=== PATIENT | female | born 1935 | race Caucasian/White ===

== ENCOUNTER 2018-03-17 10:18 | Inpatient (IN) | payer OTHER, SELFPAY ==
[2018-03-08 09:59] VITALS: BMI 24.7
[2018-03-17] VITALS (18 sets, daily range): BP systolic 99–136; BP diastolic 42–85; PULSE 54–64; RESP 13–100; TEMP 35.8–36.5; O2SAT 96–100
--- NOTE | 2018-03-17 | DI.RAD.S_ITS ---
PROCEDURE: XR PELVIS 1-2V INDICATIONS: POST OPERATIVE TOTAL LEFT HIP TECHNIQUE: 1 view of the lower pelvis acquired. COMPARISON: [facility] [place], [place], XR PELVIS WITH LATERAL HIP LEFT, 01/19/2018, 9:38. FINDINGS: Bones: Patient is status post left hip arthroplasty, with hardware components in expected positions. The hip joint appears congruent. The visualized bony structures appear intact. Note is made of prior right hip arthroplasty with prosthesis in expected position. Soft tissues: Overlying postoperative changes are noted. No suspicious soft tissue densities. IMPRESSION: Left hip prosthesis in anatomic alignment. Dictated by: Aruna Wilson M.D. on 03/17/2018 at 15:58 Approved by: Aruna Wilson M.D. on 03/17/2018 at 15:59
[2018-03-17] MEDS: LACTATED RINGERS 1,000 ML 42 ML IV (11:00)
--- NOTE | 2018-03-17 11:45 | PM.PREOP ---
Pre-operative Note Interval Note Pre-op Check: History & Physical Reviewed by Physician and Changes
[2018-03-17] MEDS: CEFAZOLIN 1 GM VIAL IV (12:22)
--- NOTE | 2018-03-17 13:16 | SUR.OPER ---
Lateral on padded OR bed. Gel axillary roll. Arms secured on padded armboard with pillow supporting top arm. Padded hip positioner braces x4 - anterior and posterior chest and pelvis. Additional gel pad used anterior pelvis. Gel pad under bottom leg from knee to foot and secured with tape over sheet.
[2018-03-17] MEDS: BUPIVACAINE 0.25% W/ EPI 50 ML VIAL 30 ML INJ (13:23)
[2018-03-17] MEDS: BUPIVACAINE LIPOSOME 266 MG/20 ML VIAL INJ (13:24)
--- NOTE | 2018-03-17 14:47 | PM.OP.1 ---
Operative Date/Time/Diagnoses - Date of procedure: 03/17/18 Time of procedure: 14:48 Pre-op diagnosis: Left hip osteoarthritis Post-op diagnosis: same Procedure & Clinicians Procedure: Left total hip arthroplasty (CPT code 87187 with patient observation assistant) Same procedure as scheduled: Yes Indications: Patient is an 83-year-old female with severe left hip DJD. The patient has pain with activities and at rest, limited ambulation and activity tolerance, difficulties with ADLs, and failure of conservative treatment. We have discussed the nature of condition, treatment options, risks and benefits, and patient elects to proceed with total hip arthroplasty and gives informed consent. Surgeon: Karl Harden Copier Technician: Sheba Duke Anesthesia Type: General and Spinal Operative Notes Closure Type: primary Implants & Drains: Acetabulum: Cazares and Nephew R3 acetabular component size 52 mm Femoral component: Cazares and Nephew Synergy stem size 15 with high offset Femoral head: 36 mm + 0 cobalt chrome Estimated Blood Loss (mL): 100 Procedure in detail: After satisfaction induction of anesthetic, and administration of IV antibiotics, the patient was positioned in the lateral decubitus position with all bony prominences well padded and pelvic position secured using a hip worm farmer positioning device. Left hip and lower extremity prepped and draped in the usual sterile fashion, 1st dose of intravenous tranexamic acid was administered, then a longitudinal incision was created centered over the greater trochanter and carried sharply through the skin and subcutaneous tissues down to the fascia demond which was divided longitudinally and retracted with a Charnley retractor. External rotators visualize, cut, tagged, and retracted posteriorly, then the capsule was cut in a T-type fashion with the corners tagged and retracted. Hip was dislocated and femoral neck cut made according to preoperative templating. Acetabular retractors then placed, and the acetabular labrum and osteophytes were excised. The acetabulum was then sequentially reamed to 51 mm with an excellent circumferential ream and fit with the trial. The trial component was removed and a permanent size 52 mm Cazares and Nephew R3 acetabular component was selected, positioned, and impacted with satisfactory position and fixation achieved. Permanent liner was then inserted with the elevated lip directed posteriorly. Soft tissue then removed off the lateral femoral neck in the lateral neck was entered using a box osteotome. T-handled reamers placed down the canal followed by sequential broaching to 15 with the final broach left in place for trial reduction which demonstrated excellent leg length, range of motion, and stability characteristics with a high offset neck and 36 mm +0 trial ball. The trial and broach were removed, and a permanent size 15 high offset Cazares and Nephew Synergy stem was selected and inserted with excellent position and fixation achieved. Another trial reduction yielded the above characteristics so the trial ball was exchanged for a permanent 36 mm +0 cobalt chrome ball. The hip was irrigated and reduced and excellent leg length range of motion and stability characteristics were achieved and maintained. Periarticular tissues were infiltrated with Exparel. The hip was copiously irrigated, and the capsule repaired with #2 Ethibond, and the piriformis was repaired back to the greater trochanter with the same. Fascia demond closed with interrupted #1 Ethibond sutures, and the subcutaneous tissues were closed in 2 layers of 0 Vicryl and 2 0 Vicryl. Skin was closed with shaw and sterile dressings applied. Second dose of tranexamic acid was administered intravenously, and the anesthetic was terminated. Complications: none Condition: stable Disposition: PACU Plan for aftercare: Patient will be admitted to the acute care llanes, and anticipate discharge on postop day 3 with follow-up in office in 10-14 days. Outpatient physical therapy will be arranged and patient will continue to observe posterior hip precautions. Patient will continue use of postoperative Lovenox for 10 days postop.
[2018-03-17] MEDS: LACTATED RINGERS 1,000 ML 100 ML IV (16:38)
[2018-03-17] MEDS: ONDANSETRON 4 MG/2 ML INJ IV ×2 (16:38→20:05)
[2018-03-17] MEDS: METOCLOPRAMIDE 10 MG/2 ML INJ IV ×2 (18:05→22:02)
--- NOTE | 2018-03-17 18:24 | PC.ADMIT ---
Addendum entered by Delores Ballard R.N. 03/17/18 21:02: pt had 3 episodes of emesis despite PRN antiemetics administered and not taking any PO intake. pt denies having any previous nausea issues but pt's report pt had severe nausea with previous surgeries and notified the anesthesiologist prior to surgery today. Notified Dr. Cazares. SHIRLEY ng MD to contact anesthesiologist regarding nausea relief options. pt and spouse notified. Awaiting new orders. Original Note: [id number] Admission Note: The patient,Nereida Villar,83 y/o, was given written information regarding hospital policies, unit procedures and contact persons. Patient's smoking status: Never smoker. Vital Signs - 8 hr 03/17/18 11:06 03/17/18 14:16 03/17/18 14:21 Temperature 97.1 F L 97.4 F L Pulse Rate 64 62 64 Respiratory Rate 16 13 13 Blood Pressure 136/61 H 103/46 L 99/44 L Pulse Oximetry 99 97 97 03/17/18 14:26 03/17/18 14:31 03/17/18 14:37 Temperature Pulse Rate 63 61 60 Respiratory Rate 14 13 13 Blood Pressure 102/42 L 99/43 L 104/42 L Pulse Oximetry 98 99 99 03/17/18 14:47 03/17/18 14:57 03/17/18 15:07 Temperature Pulse Rate 56 L 58 L 57 L Respiratory Rate 13 14 57 H Blood Pressure 104/44 L 105/46 L 103/48 L Pulse Oximetry 99 98 99 03/17/18 15:20 03/17/18 15:30 03/17/18 15:45 Temperature 97.7 F 97.4 F L Pulse Rate 56 L 60 57 L Respiratory Rate 13 14 100 H Blood Pressure 118/52 L 118/66 120/70 Pulse Oximetry 98 99 100 03/17/18 16:05 03/17/18 16:15 03/17/18 16:45 Temperature 96.5 F L 96.5 F L Pulse Rate 60 54 L Respiratory Rate 17 18 18 Blood Pressure 127/85 H 126/52 H Pulse Oximetry 98 97 96 03/17/18 18:03 Temperature 96.6 F L Pulse Rate 62 Respiratory Rate 18 Blood Pressure 136/66 H Pulse Oximetry 100 Received pt at approximately 1545 via bed, accompanied by WEAVER APPRENTICE. Ox3, pleasant and cooperative. L hip bulky dressing CDI, ice pack applied. pt states numbness to bilateral feet/toes, and some sensation to calf area. pt has 2-3+ muscle strength to knees, minimal movement to ankles/toe area. Received pt without brito intact, able to void via bedpan. pt c/o nausea, refused PO intake/meals at that time. medicated with PRN zofran and able to rest comfortably. pt awoke with a headache and vomited the small amount of water she had just drank. pt medicated with PRN reglan. pt denies any pain, only stiffness to L hip area. educated and encouraged hip precautions. pt currently resting.
[2018-03-17] MEDS: CEFAZOLIN 2 GM/100 ML FROZ.PIGGY IV (22:03)
[2018-03-18 00:35] VITALS: BP 122/55; PULSE 61; RESP 11; TEMP 36.3; O2SAT 99
[2018-03-18] MEDS: LACTATED RINGERS 1,000 ML 125 ML IV (02:00)
[2018-03-18] MEDS: hydrOXYzine pamoate 25 MG CAPSULE PO (04:12)
[2018-03-18 04:26] VITALS: BP 118/56; PULSE 66; RESP 13; TEMP 36.1; O2SAT 98
[2018-03-18] MEDS: CEFAZOLIN 2 GM/100 ML FROZ.PIGGY IV (05:51)
[2018-03-18 05:52] LABS: Hemoglobin 10.5 g/dL (12.0-16.0)
[2018-03-18 08:19] VITALS: BP 126/64; PULSE 68
[2018-03-18] MEDS: FELODIPINE ER 2.5 MG TAB PO ×2 (08:19→21:36)
[2018-03-18] MEDS: LISINOPRIL 20 MG TABLET 40 MG PO (08:19)
[2018-03-18] MEDS: DOCUSATE 100 MG CAPSULE PO ×2 (08:19→21:36)
[2018-03-18] MEDS: ATENOLOL 50 MG TABLET PO (08:19)
[2018-03-18] MEDS: ACETAMINOPHEN SUSP 650 MG/20.3 ML UDC 1000 MG PO ×4 (08:20→21:35)
[2018-03-18] MEDS: TOLTERODINE 1 MG TABLET PO ×2 (08:20→21:36)
[2018-03-18] MEDS: ENOXAPARIN 40 MG/0.4 ML SYRINGE SUBCUT (08:20)
[2018-03-18] MEDS: MULTIVITAMIN 1 TABLET 1 TAB PO (08:20)
--- NOTE | 2018-03-18 09:50 | PT.IIE ---
Physical Therapy Inpatient Evaluation/Re-Eval M1 PT/OT-IP Prior Functional Status Start: 03/18/18 08:10 Freq: NEEDED Status: Active Protocol: Document 03/18/18 09:38 RS (Rec: 03/18/18 09:50 RS [id number]) Medical Review Prior Functional Status Medical History Reviewed Yes Communication no known deficits. Mobility and Gait mod ind w/ SPC at all times, denies any falls. Prior Functional Level (Other details) drives, likes to stay active. Social History Household Members spouse Living Arrangements House Number of Floors (Floors) One Floor Number of Stairs To Enter/Railing? 2STE w/ R rail ascending Home Equipment Front Wheel Walker Straight Cane Employment Status Retired Additional Social History Comment will be serving as caregiver, he has no physical limitations M2 PT-IP Current Condition Start: 03/18/18 08:10 Freq: NEEDED Status: Active Protocol: Document 03/18/18 09:38 RS (Rec: 03/18/18 09:50 RS [id number]) Physical Therapy Current Condition Current Condition Evaluation Date 03/18/18 Treatment Diagnosis impaired mobility s/p L post MELVI Onset Date 03/17/18 Weight Bearing Status Weight Bearing Status Weight Bear as Tolerated M3 PT-IP Subjective Start: 03/18/18 08:10 Freq: NEEDED Status: Active Protocol: Document 03/18/18 09:38 RS (Rec: 03/18/18 09:50 RS [id number]) Subjective Physical Therapy Visit Type Type Initial Evaluation Visit Start Time 08:52 Visit Stop Time 09:32 Total Visit Minutes 40 Physical Therapy Visit Comments Patient/Caregiver Goals Go home tomorrow. Therapy Pain Assessment Pain When Pain Assessed At Rest Pain Present Pain Present Pain Reported Location Left Hip Intensity 4 Description Aching Tender Throbbing With Movement Pain Behaviors Facial Grimacing Pain Management Techniques Apply Cold Re-positioning Timing of Activity with Medications M4 PT-IP Mobility and Gait Start: 03/18/18 08:10 Freq: NEEDED Status: Active Protocol: Document 03/18/18 09:38 RS (Rec: 03/18/18 09:50 RS [id number]) PT-Bed Mobility Assessment Supine to Sit Supine to Sit Minimal Assistance 1 Person Assistance Head of Bed Elevated Scooting Scooting to Edge of Bed Contact Guard Assistance PT-Transfer Assessment Sit to and From Stand Sit to and from Stand Contact Guard Assistance 1 Person Assistance Use of Upper Extremities Equipment Transfer Assistive Device Gait Belt Front Wheeled Walker Transfers Transfer Destination Chair Toilet Transfer Technique Stand Step Pivot Transfer Ability Level of Assist Contact Guard Assistance 1 Person Assistance Use of Upper Extremities Comments Mobility Comments cues required for placement of feet, pt needed no reminder to avoid leaning forward Gait Assessment Gait Gait Assistance Required: Standby Assistance 1 Person Assist Distance (Feet) (feet) 30 Able to Maintain Weight Bearing Status Yes During Gait Assistive Devices Assistive Device Gait Belt Front Wheeled Walker Gait Deviations General Gait Pattern Antalgic Comments Gait Comments Other than slight limp and slow velocity, pts gait looks relatively symmetrical and normal. All mobility was performed with shoes donned. PT-Balance Assessment Sitting Balance and Reactions Static Sitting Balance Ability Normal Dynamic Sitting Balance Ability Normal Standing Balance and Reactions Static Standing Balance Ability Normal Dynamic Standing Balance Ability Good Device Used FWW M5 PT-IP Objective Assessments Start: 03/18/18 08:10 Freq: NEEDED Status: Active Protocol: Document 03/18/18 09:38 RS (Rec: 03/18/18 09:50 [id number]) Orientation Orientation/Cognition Level of Alertness Alert Orientation Name Age Birthday Month Date Year Day of Week Place Situation Language Function Ability No Deficits Noted Safety Awareness Understands Safety Issues Memory Description No Deficits Noted Gross Range of Motion Upper Extremity ROM Assessment Within Functional Limits Lower Extremity ROM Assessment Right Impaired Impairments R knee flexion limited otherwise BLE WFL within L hip precautions Strength Upper Extremity Strength Assessment Within Functional Limits Comments Strength Comments not formally assessed M6 PT-IP Treatment Start: 03/18/18 08:10 Freq: NEEDED Status: Active Protocol: Document 03/18/18 09:38 RS (Rec: 03/18/18 09:50 [id number]) Physical Therapy Treatment Exercises Exercises Ankle Pumps Gluteal Sets Quad Sets Education Post-Op Education Precautions Weight Bearing Status Post-Op Packet Safety M7 PT-IP Assessment and Plan Start: 03/18/18 08:10 Freq: NEEDED Status: Active Protocol: Document 03/18/18 09:38 RS (Rec: 03/18/18 09:50 [id number]) PT Summary Assessment and Plan Potential Rehabilitation Potential Excellent Summary Impairments Pain Strength Bed Mobility Transfers Gait Activity Tolerance Progress Towards Goals Progressing Toward Goals Assessment Summary Pt presents with pain and decreased strength that are causing functional impairments with all mobility as expected s/p L MELVI. However, pt is mobilizing well, requiring the most assist with bed mobility . Anticipate that with 1-2 more sessions including family training, pt will be ready to safely discharge home with via car and continue with OPPT when ready. Pt in agreement with this plan. Goals Bed Mobility Goal Independent Transfer Goal Standby Assistance Front Wheeled Walker Gait Goal Standby Assistance Front Wheel Walker Gait Distance 150 Other Goals Up/down 2 steps w/ 1 rail and CGA. Days to Meet Goals 2 Frequency of Treatment Frequency Of Treatment Twice a Day Treatment Plan Physical Therapy Treatment Plan Bed Mobility Training Transfer Training Gait Training Therapeutic Exercise Discharge Planning Other Recommendations and Next Treatment finish going over MELVI Focus exercises, progress walking distance, trial stairs if ready. Needs to practice bed mobility with bed flat. Recommendations To Nursing Amount of Assist Needed 1 Person Assist Discharge Recommendations PT Discharge Recommendations Home with Assistance Visit Care Team Role Provider Type Prosper Francois MD Primary Care Provider Non-Staff Referring Provider Karl Harden MD Admit Provider Physician Attending Provider Current Diagnoses Unilateral primary osteoarthritis, left hip (03/17/18) Trochanteric bursitis, right hip (03/17/18) Medical History (Last Updated 03/08/18 @ 10:19 by Maribel Gibson RN) Chronic pain (Acute) HTN (hypertension) (Acute) History of hysterectomy (Acute) Hyperlipemia (Acute) Lower urinary tract symptoms (LUTS) (Acute) Neuropathy (Acute) Surgery Performed Operation Date: 03/17/18 11:45 Actual Procedures p Total Hip Arthroplasty(Left) - Karl Harden MD Surgical History (Last Updated 03/08/18 @ 10:19 by Maribel Gibson RN) History of total right hip arthroplasty (Acute) Hx of appendectomy (Acute) Hx of tonsillectomy (Acute) Hx of total knee arthroplasty (Acute) Status post cataract extraction of both eyes with insertion of intraocular lens (Acute)
[2018-03-18 09:57] VITALS: BP 126/64; PULSE 68; RESP 16; TEMP 36.4; O2SAT 99
--- NOTE | 2018-03-18 10:12 | P.PN_ITS ---
Subjective Interval history: Patient was seen bedside status post left posterior MELVI with Dr. Harden. Patient is postop day 1. She is doing well, pain is relatively controlled, however her appetite is poor at this time. She has gotten up physical therapy and did well. She does not feel comfortable going home today. Date Patient Seen: 03/18/18 Time Patient Seen: 09:44 Exam Vital Signs (past 8 hours): Vital Signs - 8 hr 3 03/18/18 04:26 03/18/18 08:19 03/18/18 09:57 Temperature 96.9 F L 97.5 F L Pulse Rate 66 68 68 Respiratory Rate 13 16 Blood Pressure 118/56 L 126/64 H 126/64 H Pulse Oximetry 98 99 Pulse Oximetry 99 Oxygen Delivery Method Room Air Oxygen Flow Rate 0 Narrative Exam Narrative: Impression patient is well-developed well-nourished in no acute distress. Patient alert oriented x3. Examination of the left lower extremity shows that is neurovascularly intact with full range of motion of the ankle and the ability to fire her quadriceps muscle. Incision is clean dry and intact covered by a dressing. Calves are soft and compressible. No true edema in the lower extremities. Objective Labs Result Diagrams: 03/18/18 05:46 Labs: Laboratory Results - last 24 hr 03/18/18 05:46 Hgb 10.5 L Hct 30.0 L Assessment & Plan Post-op Postoperative Procedures Operation Date: 03/17/18 11:45 Actual Procedures Side Surgeon p Total Hip Arthroplasty Left Karl Harden MD Patient is status post left MELVI postop day 1. Doing well continue with PT, VTE prophylaxis, and pain control. Discharge home tomorrow. Postoperative day: 1 Postoperative status: doing well Postoperative plan: routine post-op care, ambulate and advance diet Time Spent With Patient less than 15 minutes Quality VTE Deep Vein Thrombosis/Pulmonary Embolism Present on Admission: No
--- NOTE | 2018-03-18 14:28 | PT.IPNOTE ---
PHYSICAL THERAPY UPDATE NOTE 03/18/18 @ 1428 Attempted to see patient 3x this afternoon, pt sound asleep each time. During AM session pt c/o being so tired from not sleeping well last night. Spoke with RN who agrees pt should sleep for now. Patient did extremely well during the AM session, it is not anticipated that missing this afternoon session will slow the discharge process.
[2018-03-18 16:05] VITALS: BP 128/47; PULSE 75; RESP 18; TEMP 36.6; O2SAT 97
[2018-03-18 20:37] VITALS: BP 139/67; PULSE 77; RESP 16; TEMP 37.1; O2SAT 98
[2018-03-18] MEDS: SIMVASTATIN 10 MG TABLET PO (21:36)
--- NOTE | 2018-03-18 22:16 | PC.NURSE ---
Evening Shift Note Pt A&O, VSS, 98% RA. Pain managed w/ scheduled Tylenol. No N/V this shift, pt tolerating general diet. Bulky dressing C/D/I, CMS intact. Up w/ 1p assist w/ FWW. Possible dc tomorrow.
[2018-03-19 01:05] VITALS: BP 118/56; PULSE 81; RESP 17; TEMP 36.7; O2SAT 94
[2018-03-19] MEDS: OXYCODONE/ACETAMINOPHEN 5/325 TABLET 1 TAB PO ×2 (01:05→08:42)
[2018-03-19 04:12] VITALS: BP 115/54; PULSE 78; RESP 18; TEMP 36.7; O2SAT 97
[2018-03-19] MEDS: hydrOXYzine pamoate 25 MG CAPSULE PO (06:52)
[2018-03-19 06:54] VITALS: BP 147/67; PULSE 76
[2018-03-19 07:58] VITALS: BP 131/59; PULSE 81; RESP 18; TEMP 36.6; O2SAT 99
[2018-03-19] MEDS: DOCUSATE 100 MG CAPSULE PO ×2 (08:44→20:17)
[2018-03-19] MEDS: ATENOLOL 50 MG TABLET PO (08:44)
[2018-03-19] MEDS: FELODIPINE ER 2.5 MG TAB PO ×2 (08:44→20:17)
[2018-03-19] MEDS: MULTIVITAMIN 1 TABLET 1 TAB PO (08:45)
[2018-03-19] MEDS: TOLTERODINE 1 MG TABLET PO ×2 (08:45→20:17)
[2018-03-19] MEDS: ENOXAPARIN 40 MG/0.4 ML SYRINGE SUBCUT (08:45)
[2018-03-19] MEDS: LISINOPRIL 20 MG TABLET 40 MG PO (08:45)
--- NOTE | 2018-03-19 10:10 | P.PN_ITS ---
Subjective Date Patient Seen: 03/19/18 Time Patient Seen: 10:08 Interval history: Patient is status post left total hip arthroplasty by Dr. Harden. Postop day 2. Patient is having a lot more pain today. She is about to have PT. Previously she was only getting Tylenol for pain but it was not controlling her pain. She is having a lot more pain today. She was given oxycodone earlier but it made her a little too sedated. Nurse on duty would like to try Vicodin instead for pain control. Plan to d/c home possibly tomorrow if pain is under control and more ambulatory. Exam Vital Signs (past 8 hours): Vital Signs - 8 hr 3 03/19/18 04:12 03/19/18 06:54 03/19/18 07:58 Temperature 98.0 F 97.9 F Pulse Rate 78 76 81 Respiratory Rate 18 18 Blood Pressure 115/54 L 147/67 H 131/59 H Pulse Oximetry 97 99 Pulse Oximetry 99 Oxygen Delivery Method Room Air Oxygen Flow Rate 0 Narrative Exam Narrative: Patient is sitting at the edge of bed about to get up. Appears uncomfortable. Left hip dressing clean dry and intact. Bilateral calf soft and nontender. 5/5 left ankle strength. Neurovascular status intact. Objective Labs Result Diagrams: 03/18/18 05:46 Assessment & Plan Post-op (1) Osteoarthritis of left hip: Problem details: Patient had a left total hip arthroplasty by Dr. Harden. Postop day 2. Patient to mobilize with physical therapy today. We will try Vicodin 10 mg as needed for pain control. Continue DVT prophylaxis with Lovenox and SCDs. Posterior hip precautions. Possible DC home tomorrow. Current Visit: Yes Status: Acute (2) Hypertension: Problem details: Continue home meds. Current Visit: Yes Status: Acute (3) Postoperative anemia due to acute blood loss: Problem details: Iron and vitamin-C. HH ordered. Current Visit: Yes Status: Acute Postoperative Procedures Operation Date: 03/17/18 11:45 Actual Procedures Side Surgeon p Total Hip Arthroplasty Left Karl Harden MD Time Spent With Patient less than 15 minutes Quality VTE Deep Vein Thrombosis/Pulmonary Embolism Present on Admission: No
--- NOTE | 2018-03-19 10:36 | PC.NURSE ---
Addendum entered by Anna Ahn R.N. 03/19/18 14:42: MS/PAIN - per pt and phys therapy, has been more alert and was able to move to dangle better this afternoon than this am, once attempting stand and mobilize her pain did increase to 2 and added a 2nd tab with crackers. Original Note: Addendum entered by Anna Ahn R.N. 03/19/18 13:48: pain - after lunch, pt ret bed, drowsy but awakens easily, states minimal pain now, given norco 5/325mg x 1 tab now and phys therapy will be in approx 1hr to mobilize, discussed notify rn if 2nd tab needed. Original Note: Addendum entered by Anna Ahn R.N. 03/19/18 11:00: gi - brought in MOM and pt concern she might have an explosion, instead given prune juice. Original Note: AM NOTE - awakened for breakfast, states pain 7.5 on scale 0/10 has chr back discomfort with stenosis, tylenol has not been providing adequate relief and did not admin scheduled dose this am, given percocet po 5/325mg after breakfast, ra 96%, P90,spoke to LYNSEY King this am regarding pain medications and tylenol and have dc'd the scheduled tylenol, when pt up with PT this am, winces with discomfort, states pain 4 on scale 0/10 and using fww did ambulate in room to chair, new order rec'd for norco tabs to try, no bm, minimal flatus, added mom this am to stool softener, when PT in removed the bulky dsg and replaced with coversite, no redness or drainage.
[2018-03-19 11:03] LABS: Hematocrit 29.9 % (36-46); Hemoglobin 10.3 g/dL (12.0-16.0)
--- NOTE | 2018-03-19 11:58 | PT.IPTN ---
Current Diagnoses Acute posthemorrhagic anemia (03/17/18) Essential (primary) hypertension (03/17/18) Unilateral primary osteoarthritis, left hip (03/17/18) Trochanteric bursitis, right hip (03/17/18) Surgery Performed Operation Date: 03/17/18 11:45 Actual Procedures p Total Hip Arthroplasty(Left) - Karl Harden MD Physical Therapy Treatment Note M2 PT-IP Current Condition Start: 03/18/18 08:10 Freq: NEEDED Status: Active Protocol: Document 03/18/18 09:38 RS (Rec: 03/18/18 09:50 RS [id number]) Physical Therapy Current Condition Current Condition Evaluation Date 03/18/18 Treatment Diagnosis impaired mobility s/p L post MELVI Onset Date 03/17/18 Weight Bearing Status Weight Bearing Status Weight Bear as Tolerated M3 PT-IP Subjective Start: 03/18/18 08:10 Freq: NEEDED Status: Active Protocol: Document 03/19/18 11:50 GGD (Rec: 03/19/18 11:58 GGD [email or web address]) Subjective Physical Therapy Visit Type Type Treatment Note Visit Start Time 09:35 Visit Stop Time 10:10 Total Visit Minutes 35 Number of CARE TECHNICIAN Visits 1 Physical Therapy Visit Comments Patient Comments Pt states that she got some sleep. Therapy Pain Assessment Pain When Pain Assessed At Rest Pain Present Pain Present Pain Reported Location Left Hip Intensity 3 Description Aching Sharp Tender Pain Management Techniques Apply Cold Re-positioning Timing of Activity with Medications M4 PT-IP Mobility and Gait Start: 03/18/18 08:10 Freq: NEEDED Status: Active Protocol: Document 03/19/18 11:50 GGD (Rec: 03/19/18 11:58 GGD [id number]) PT-Bed Mobility Assessment Supine to Sit Supine to Sit Moderate Assistance 1 Person Assistance Bedrails Scooting Scooting to Edge of Bed Minimal Assistance PT-Transfer Assessment Sit to and From Stand Sit to and from Stand Contact Guard Assistance Use of Upper Extremities Equipment Transfer Assistive Device Gait Belt Front Wheeled Walker Transfers Transfer Destination Chair Transfer Technique gait Transfer Ability Level of Assist Contact Guard Assistance 1 Person Assistance Use of Upper Extremities Gait Assessment Gait Gait Assistance Required: Contact Guard Assist 1 Person Assist Distance (Feet) (feet) 20 Able to Maintain Weight Bearing Status Yes During Gait Assistive Devices Assistive Device Gait Belt Front Wheeled Walker Gait Deviations General Gait Pattern Antalgic Decreased Stride Length Step-to Gait M5 PT-IP Objective Assessments Start: 03/18/18 08:10 Freq: NEEDED Status: Active Protocol: Document 03/18/18 09:38 RS (Rec: 03/18/18 09:50 RS [id number]) Orientation Orientation/Cognition Level of Alertness Alert Orientation Name Age Birthday Month Date Year Day of Week Place Situation Language Function Ability No Deficits Noted Safety Awareness Understands Safety Issues Memory Description No Deficits Noted Gross Range of Motion Upper Extremity ROM Assessment Within Functional Limits Lower Extremity ROM Assessment Right Impaired Impairments R knee flexion limited otherwise BLE WFL within L hip precautions Strength Upper Extremity Strength Assessment Within Functional Limits Comments Strength Comments not formally assessed M6 PT-IP Treatment Start: 03/18/18 08:10 Freq: NEEDED Status: Active Protocol: Document 03/19/18 11:50 GGD (Rec: 03/19/18 11:58 GGD [email or web address]) Physical Therapy Treatment Exercises Exercises Ankle Pumps Gluteal Sets Quad Sets Heel Slides Education Post-Op Education Precautions M7 PT-IP Assessment and Plan Start: 03/18/18 08:10 Freq: NEEDED Status: Active Protocol: Document 03/19/18 11:50 GGD (Rec: 03/19/18 11:58 GGD [email or web address]) PT Summary Assessment and Plan Summary Assessment Summary Pt had increase pain with mobility and needed increase in assistance with bed mobility. She had decrease tolerance to gait. Frequency of Treatment Frequency Of Treatment Twice a Day Treatment Plan Other Recommendations and Next Treatment progress gait, bed mobility Focus and stairs before d/C. Recommendations To Nursing Amount of Assist Needed 1 Person Assist Discharge Recommendations PT Discharge Recommendations Home with Assistance Outpatient PT
[2018-03-19] MEDS: ASCORBIC ACID 500 MG TABLET PO (12:09)
[2018-03-19] MEDS: FERROUS SULFATE 325 MG TABLET PO (12:10)
[2018-03-19] MEDS: HYDROCODONE/ACET 5/325 TABLET 1 TAB PO ×3 (13:40→20:17)
--- NOTE | 2018-03-19 14:46 | PT.IPTN ---
Current Diagnoses Acute posthemorrhagic anemia (03/17/18) Essential (primary) hypertension (03/17/18) Unilateral primary osteoarthritis, left hip (03/17/18) Trochanteric bursitis, right hip (03/17/18) Surgery Performed Operation Date: 03/17/18 11:45 Actual Procedures p Total Hip Arthroplasty(Left) - Karl Harden MD Physical Therapy Treatment Note M2 PT-IP Current Condition Start: 03/18/18 08:10 Freq: NEEDED Status: Active Protocol: Document 03/18/18 09:38 RS (Rec: 03/18/18 09:50 RS [id number]) Physical Therapy Current Condition Current Condition Evaluation Date 03/18/18 Treatment Diagnosis impaired mobility s/p L post MELVI Onset Date 03/17/18 Weight Bearing Status Weight Bearing Status Weight Bear as Tolerated M3 PT-IP Subjective Start: 03/18/18 08:10 Freq: NEEDED Status: Active Protocol: Document 03/19/18 14:41 GGD (Rec: 03/19/18 14:46 GGD [email or web address]) Subjective Physical Therapy Visit Type Type Treatment Note Visit Start Time 14:10 Visit Stop Time 14:40 Total Visit Minutes 30 Number of DISTILLERY MANAGER Visits 2 Physical Therapy Visit Comments Patient Comments Pt states that she doing better. Therapy Pain Assessment Pain When Pain Assessed At Rest Pain Present Pain Present Pain Reported Location Left Hip Intensity 1 Scale Used Numeric (1 - 10) Description Aching Pain Behaviors Guarding Pain Management Techniques Re-positioning Timing of Activity with Medications M4 PT-IP Mobility and Gait Start: 03/18/18 08:10 Freq: NEEDED Status: Active Protocol: Document 03/19/18 14:41 GGD (Rec: 03/19/18 14:46 GGD [email or web address]) PT-Bed Mobility Assessment Sit to Supine Sit to Supine Minimal Assistance 1 Person Assistance Scooting Scooting to Edge of Bed Standby Assistance PT-Transfer Assessment Sit to and From Stand Sit to and from Stand Contact Guard Assistance Use of Upper Extremities Equipment Transfer Assistive Device Gait Belt Front Wheeled Walker Transfers Transfer Destination Chair Transfer Technique gait Transfer Ability Level of Assist Contact Guard Assistance Gait Assessment Gait Gait Assistance Required: Standby Assistance Distance (Feet) (feet) 90 Assistive Devices Assistive Device Gait Belt Front Wheeled Walker Gait Deviations General Gait Pattern Decreased Stride Length Step-to Gait Factors Limiting Gait Function Factors Limiting Gait Function Decreased Strength Limited Range of Motion Pain M5 PT-IP Objective Assessments Start: 03/18/18 08:10 Freq: NEEDED Status: Active Protocol: Document 03/18/18 09:38 RS (Rec: 03/18/18 09:50 RS [id number]) Orientation Orientation/Cognition Level of Alertness Alert Orientation Name Age Birthday Month Date Year Day of Week Place Situation Language Function Ability No Deficits Noted Safety Awareness Understands Safety Issues Memory Description No Deficits Noted Gross Range of Motion Upper Extremity ROM Assessment Within Functional Limits Lower Extremity ROM Assessment Right Impaired Impairments R knee flexion limited otherwise BLE WFL within L hip precautions Strength Upper Extremity Strength Assessment Within Functional Limits Comments Strength Comments not formally assessed M6 PT-IP Treatment Start: 03/18/18 08:10 Freq: NEEDED Status: Active Protocol: Document 03/19/18 14:41 GGD (Rec: 03/19/18 14:46 GGD [email or web address]) Physical Therapy Treatment Exercises Exercises Ankle Pumps Gluteal Sets Quad Sets Heel Slides Education Post-Op Education Precautions M7 PT-IP Assessment and Plan Start: 03/18/18 08:10 Freq: NEEDED Status: Active Protocol: Document 03/19/18 14:41 GGD (Rec: 03/19/18 14:46 GGD [email or web address]) PT Summary Assessment and Plan Summary Assessment Summary Pt had improved pain control. She still had increase in pain with supine to sit and stand <> sit. She need min A for bed mobility. She able to progress gait distance. Frequency of Treatment Frequency Of Treatment Twice a Day Treatment Plan Other Recommendations and Next Treatment progress gait, bed mobility Focus and stairs before d/C. Recommendations To Nursing Amount of Assist Needed 1 Person Assist Discharge Recommendations PT Discharge Recommendations Home with Assistance Outpatient PT
[2018-03-19 15:48] VITALS: BP 96/49; PULSE 80; RESP 16; TEMP 36.9; O2SAT 95
[2018-03-19 18:00] VITALS: BP 112/52; PULSE 76
[2018-03-19] MEDS: SIMVASTATIN 10 MG TABLET PO (20:17)
[2018-03-19] MEDS: MAGNESIUM HYDROXIDE 30 ML UDC PO (20:17)
[2018-03-20] VITALS: BP 127/62; PULSE 85; RESP 16; TEMP 36.5; O2SAT 97
[2018-03-20] MEDS: HYDROCODONE/ACET 5/325 TABLET 1 TAB PO ×4 (01:40→13:09)
[2018-03-20 04:57] VITALS: BP 127/77; PULSE 78; RESP 18; TEMP 36.3; O2SAT 97
[2018-03-20] MEDS: ALENDRONATE 70 MG TABLET PO (05:53)
[2018-03-20 08:00] VITALS: BP 111/52; PULSE 79; RESP 16; TEMP 36.7; O2SAT 97
[2018-03-20] MEDS: FELODIPINE ER 2.5 MG TAB PO (09:10)
[2018-03-20] MEDS: DOCUSATE 100 MG CAPSULE PO (09:10)
[2018-03-20] MEDS: LISINOPRIL 20 MG TABLET 40 MG PO (09:10)
[2018-03-20] MEDS: MULTIVITAMIN 1 TABLET 1 TAB PO (09:10)
[2018-03-20] MEDS: FERROUS SULFATE 325 MG TABLET PO (09:11)
[2018-03-20] MEDS: ASCORBIC ACID 500 MG TABLET PO (09:11)
[2018-03-20] MEDS: ENOXAPARIN 40 MG/0.4 ML SYRINGE SUBCUT (09:12)
[2018-03-20] MEDS: TOLTERODINE 1 MG TABLET PO (09:12)
[2018-03-20] MEDS: ATENOLOL 50 MG TABLET PO (09:13)
--- NOTE | 2018-03-20 10:10 | PT.IPTN ---
Current Diagnoses Acute posthemorrhagic anemia (03/17/18) Essential (primary) hypertension (03/17/18) Unilateral primary osteoarthritis, left hip (03/17/18) Trochanteric bursitis, right hip (03/17/18) Surgery Performed Operation Date: 03/17/18 11:45 Actual Procedures p Total Hip Arthroplasty(Left) - Karl Harden MD Physical Therapy Treatment Note M2 PT-IP Current Condition Start: 03/18/18 08:10 Freq: NEEDED Status: Active Protocol: Document 03/18/18 09:38 RS (Rec: 03/18/18 09:50 RS [id number]) Physical Therapy Current Condition Current Condition Evaluation Date 03/18/18 Treatment Diagnosis impaired mobility s/p L post MELVI Onset Date 03/17/18 Weight Bearing Status Weight Bearing Status Weight Bear as Tolerated M3 PT-IP Subjective Start: 03/18/18 08:10 Freq: NEEDED Status: Active Protocol: Document 03/20/18 09:17 CLB (Rec: 03/20/18 10:09 CLB [email or web address]) Subjective Physical Therapy Visit Type Type Treatment Note Visit Start Time 09:17 Visit Stop Time 09:50 Total Visit Minutes 37 Number of EDUCATIONAL AIDE Visits 3 Physical Therapy Visit Comments Patient Comments Pt ready to go home. Therapy Pain Assessment Pain When Pain Assessed During Mobility Pain Present Pain Present Pain Reported Location Left Hip Intensity 4 Scale Used Numeric (1 - 10) Pain Management Techniques Apply Cold Timing of Activity with Medications M4 PT-IP Mobility and Gait Start: 03/18/18 08:10 Freq: NEEDED Status: Active Protocol: Document 03/20/18 09:17 CLB (Rec: 03/20/18 10:09 CLB [id number]) PT-Transfer Assessment Sit to and From Stand Sit to and from Stand Standby Assistance Equipment Transfer Assistive Device Gait Belt Front Wheeled Walker Transfers Transfer Destination Chair Transfer Technique gait Transfer Ability Level of Assist Standby Assistance Comments Mobility Comments Pt up at sink brushing teeth upon arrival. Pt has good standing balance. Gait Assessment Gait Gait Assistance Required: Standby Assistance Distance (Feet) (feet) 225 Assistive Devices Assistive Device Gait Belt Front Wheeled Walker Gait Deviations General Gait Pattern Antalgic Decreased Stride Length Factors Limiting Gait Function Factors Limiting Gait Function Decreased Strength Limited Range of Motion Pain Comments Gait Comments Pt increased gait to ~200+ ft with increase in pain of 6/10. Pt eager to ambulate. Stair Climbing Assessment Evaluation Level of Assist On Stairs Contact Guard Assistance Devices Stair Climbing Assistive Devices Right Railing Technique/Endurance Stair Climbing Direction Ascend and Descend Stair Climbing Technique Step to Step Number of Steps Climbed 3 Query Text: Stair Climbing Set # Repetitions (reps) 1 Comments Stair Climbing Comments Pt did well with stair training but had some difficulty bending R knee descending stairs. M5 PT-IP Objective Assessments Start: 03/18/18 08:10 Freq: NEEDED Status: Active Protocol: Document 03/18/18 09:38 RS (Rec: 03/18/18 09:50 RS [id number]) Orientation Orientation/Cognition Level of Alertness Alert Orientation Name Age Birthday Month Date Year Day of Week Place Situation Language Function Ability No Deficits Noted Safety Awareness Understands Safety Issues Memory Description No Deficits Noted Gross Range of Motion Upper Extremity ROM Assessment Within Functional Limits Lower Extremity ROM Assessment Right Impaired Impairments R knee flexion limited otherwise BLE WFL within L hip precautions Strength Upper Extremity Strength Assessment Within Functional Limits Comments Strength Comments not formally assessed M6 PT-IP Treatment Start: 03/18/18 08:10 Freq: NEEDED Status: Active Protocol: Document 03/20/18 09:17 CLB (Rec: 03/20/18 10:09 CLB [id number]) Physical Therapy Treatment Exercises Exercises Ankle Pumps Gluteal Sets Quad Sets Other Treatments Other Treatment Performed SBA for standing balance while pt cleaned her bottom more thoroughly. Pt able to stand inside walker, get cloth, doff /erorl brief. M7 PT-IP Assessment and Plan Start: 03/18/18 08:10 Freq: NEEDED Status: Active Protocol: Document 03/20/18 09:17 CLB (Rec: 03/20/18 10:09 CLB [id number]) PT Summary Assessment and Plan Summary Assessment Summary Pt Increased gait distance and was able to perform stair training with tolerated pain. Pt is SBA with all gait and counter/toilet activities. Treatment Plan Other Recommendations and Next Treatment rubber tubing backer training wit Focus . Bed mobility and stairs. Recommendations To Nursing Amount of Assist Needed 1 Person Assist Discharge Recommendations PT Discharge Recommendations Home with Assistance Outpatient PT
--- NOTE | 2018-03-20 12:22 | P.PN_ITS ---
Exam Vital Signs (past 8 hours): Vital Signs - 8 hr 3 03/20/18 04:57 03/20/18 08:00 Temperature 97.4 F L 98.1 F Pulse Rate 78 79 Respiratory Rate 18 16 Blood Pressure 127/77 H 111/52 L Pulse Oximetry 97 97 Pulse Oximetry 97 Oxygen Delivery Method Room Air,Nasal Cannula Oxygen Flow Rate 0 Objective Labs Result Diagrams: 03/19/18 10:55 Assessment & Plan Plan: Plan: Patient is admitted after surgery. Patient has been stable and progressing with physical therapy. Patient is neurovascularly intact on exam. Patient has no signs or symptoms of DVT. Patient's dressing is clean dry and intact. She is doing well and will be discharged today. Quality VTE Deep Vein Thrombosis/Pulmonary Embolism Present on Admission: No
--- NOTE | 2018-03-20 12:50 | CM.DPC ---
DCP: continued: Case received, EMR reviewed (noted DCP Assessment template completed by DCP Elma 03/18) and met with pt and her . Introduced self and role. Pt is an 83 year old female who admitted 03/17 for a planned L MELVI. Dr[facility]. Dr. Boateng saw pt this afternoon and has ok'd her for home today after she works again with PT. Pt's spouse is here, has not been part of caregiver training but will be present at this last session. Pt's FWW is in the room. Pt says she does feel comfortable going home today. She managed stairs the morning in session with LALA Oliva and will work with [facility] again after lunch. P: home today as per plan
--- NOTE | 2018-03-20 13:53 | PT.IPTN ---
Current Diagnoses Acute posthemorrhagic anemia (03/17/18) Essential (primary) hypertension (03/17/18) Unilateral primary osteoarthritis, left hip (03/17/18) Trochanteric bursitis, right hip (03/17/18) Surgery Performed Operation Date: 03/17/18 11:45 Actual Procedures p Total Hip Arthroplasty(Left) - Karl Harden MD Physical Therapy Treatment Note M2 PT-IP Current Condition Start: 03/18/18 08:10 Freq: NEEDED Status: Active Protocol: Document 03/18/18 09:38 RS (Rec: 03/18/18 09:50 RS [id number]) Physical Therapy Current Condition Current Condition Evaluation Date 03/18/18 Treatment Diagnosis impaired mobility s/p L post MELVI Onset Date 03/17/18 Weight Bearing Status Weight Bearing Status Weight Bear as Tolerated M3 PT-IP Subjective Start: 03/18/18 08:10 Freq: NEEDED Status: Active Protocol: Document 03/20/18 12:45 CLB (Rec: 03/20/18 13:53 CLB [id number]) Subjective Physical Therapy Visit Type Type Treatment Note Visit Start Time 12:45 Visit Stop Time 13:25 Total Visit Minutes 40 Number of DIRECTOR HUMAN SERVICES Visits 4 Physical Therapy Visit Comments Patient Comments Pt feeling increase in pain and wants another pain pill. Therapy Pain Assessment Pain When Pain Assessed During Mobility Pain Present Pain Present Pain Reported M4 PT-IP Mobility and Gait Start: 03/18/18 08:10 Freq: NEEDED Status: Active Protocol: Document 03/20/18 12:45 CLB (Rec: 03/20/18 13:53 CLB [id number]) PT-Bed Mobility Assessment Supine to Sit Supine to Sit Minimal Assistance Scooting Scooting to Edge of Bed Standby Assistance PT-Transfer Assessment Sit to and From Stand Sit to and from Stand Standby Assistance Equipment Transfer Assistive Device Gait Belt Front Wheeled Walker Transfers Transfer Destination Chair Transfer Technique gait Transfer Ability Level of Assist Standby Assistance Comments Mobility Comments Pt needed Min a for LLE with supine - sit. Pt assisted her safely . Gait Assessment Gait Gait Assistance Required: Standby Assistance Distance (Feet) (feet) 225 Assistive Devices Assistive Device Gait Belt Front Wheeled Walker Gait Deviations General Gait Pattern Antalgic Decreased Stride Length Factors Limiting Gait Function Factors Limiting Gait Function Decreased Strength Limited Range of Motion Pain Comments Gait Comments Pt ambulated to therapy stairs with assisting with CGA. Stair Climbing Assessment Evaluation Level of Assist On Stairs Contact Guard Assistance Devices Stair Climbing Assistive Devices Right Railing Technique/Endurance Stair Climbing Direction Ascend and Descend Stair Climbing Technique Step to Step Number of Steps Climbed 3 Query Text: Stair Climbing Set # Repetitions (reps) 1 Comments Stair Climbing Comments Pt remembered step sequencing with stairs, assisted pt with CGA safely. M5 PT-IP Objective Assessments Start: 03/18/18 08:10 Freq: NEEDED Status: Active Protocol: Document 03/18/18 09:38 RS (Rec: 03/18/18 09:50 RS [id number]) Orientation Orientation/Cognition Level of Alertness Alert Orientation Name Age Birthday Month Date Year Day of Week Place Situation Language Function Ability No Deficits Noted Safety Awareness Understands Safety Issues Memory Description No Deficits Noted Gross Range of Motion Upper Extremity ROM Assessment Within Functional Limits Lower Extremity ROM Assessment Right Impaired Impairments R knee flexion limited otherwise BLE WFL within L hip precautions Strength Upper Extremity Strength Assessment Within Functional Limits Comments Strength Comments not formally assessed M6 PT-IP Treatment Start: 03/18/18 08:10 Freq: NEEDED Status: Active Protocol: Document 03/20/18 12:45 CLB (Rec: 03/20/18 13:53 CLB [id number]) Physical Therapy Treatment Exercises Exercises Ankle Pumps Gluteal Sets Quad Sets Other Treatments Other Treatment Performed Educated pt and on getting into car. M7 PT-IP Assessment and Plan Start: 03/18/18 08:10 Freq: NEEDED Status: Active Protocol: Document 03/20/18 12:45 CLB (Rec: 03/20/18 13:53 CLB [id number]) PT Summary Assessment and Plan Summary Assessment Summary Pt successfully completed bed mobility, gait and stairs with husbands assist. Pt seems able to d/c home with assist of . Frequency of Treatment Frequency Of Treatment Twice a Day Treatment Plan Other Recommendations and Next Treatment Pt to d/c home with Focus assist and OP PT Recommendations To Nursing Amount of Assist Needed 1 Person Assist Discharge Recommendations PT Discharge Recommendations Home with Assistance Outpatient PT
--- NOTE | 2018-03-20 14:18 | PC.NURSE ---
Pt given dc information and scripts. Taken by wheelchair to ER entrance.
--- NOTE | 2018-03-31 14:20 | PM.DS.1 ---
History of Present Illness Chief complaint: [id number] LEFT TOTAL HIP ARTHROPLASTY Discharge Providers Date of admission: 03/17/18 10:18 Primary care physician: Prosper Francois MD Consults: 03/17/18 15:52 Consult to Discharge Planning Routine Comment: Consult to Physical Therapy Evaluate & Treat Comment: Physician Instructions: jase protocol Discharge provider: Wilman Hamlin PA-C Summary Discharge Diagnosis: Status post left total hip arthroplasty Hospital Course: Patient admitted to the hospital for left total hip arthroplasty. Patient consented to the same. Patient taken to the operating room underwent left total hip arthroplasty. Patient is recovering well as his stable condition. Patient had general and spinal anesthesia. Exam Vital Signs (past 8 hours): Pulse Oximetry 97 Oxygen Delivery Method Room Air,Nasal Cannula Oxygen Flow Rate 0 Objective Labs Result Diagrams: 03/19/18 10:55 Discharge Plan Discharge Plan Patient Disposition: Home, Self-Care Discharge comment: Finish Lovenox injections. Afterwards take aspirin 81 mg for 4 weeks. Any questions or concerns contact the office. Discharge Med Rec/Prescriptions Prescriptions: New hydrocodone-acetaminophen 5-325 mg tablet 1 tab PO Q4-6H PRN (Reason: pain) Qty: 40 RF: 0 Continue felodipine 2.5 mg Tablet Extended Release 24 Hr 2.5 mg PO BID RF: 0 tolterodine 1 mg Tablet 1 mg PO BID RF: 0 lisinopril 40 mg Tablet 40 mg PO QAM RF: 0 atenolol 50 mg Tablet 50 mg PO QAM RF: 0 alendronate [Fosamax] 70 mg Tablet 70 mg PO QWEEK RF: 0 simvastatin 10 mg Tablet 10 mg PO BEDTIME RF: 0 diphenhydramine HCl 25 mg Capsule 25 mg PO BEDTIME PRN (Reason: Sleep) RF: 0 Multi Vitamin 1 tab PO DAILY RF: 0 Discontinued acetaminophen 500 mg Tablet 1,000 mg PO QID RF: 0 Follow up/Referrals: Karl Harden MD [Physician] - (Follow-up at scheduled appointment. ) Provider Discharge Instructions Diet: Diet as Tolerated Activity: Continue home exercises and start physical therapy. Posterior hip precautions. Cold/Heat Therapy: Apply ice as needed to the extremity to help with swelling and pain. Wound Care Report to your healthcare provider any signs of infection, such as:: chills, fever, night sweats, increased pain and unusual drainage Dressing: Keep dressing clean and dry. May shower. Visit Report/Discharge Packet Instructions: DI for Hip Replacement Visit Report Forms: Stroke Signs & Symptoms Discharge Data Primary Care Provider: Prosper Francois Attending Provider: Karl Harden Admit Date/Time: 03/17/18 10:18 Discharges patient from system. Discharge Date/Time: 03/20/18 14:21 Quality VTE Deep Vein Thrombosis/Pulmonary Embolism Present on Admission: No
== END 2018-03-20 14:21 | disposition home or self-care (01) | DRG 470 ==
PROVIDERS: Physician Assistant; Admitting Provider Orthopaedic Surgery; PCP Family Medicine; Referring Provider Family Medicine; Visit Provider Orthopaedic Surgery
PROC: 0SRB0JZ Replacement of Left Hip Joint with Synthetic Substitute, Open Approach (ICD-10-PCS; CPT 27130; principal; 2018-03-17 11:45)
DX: M16.12 Unilateral primary osteoarthritis, left hip (principal); D62 Acute posthemorrhagic anemia; I10 Essential (primary) hypertension; M70.62 Trochanteric bursitis, left hip
CPT/HCPCS: 36415; 72170; 85014; 85018; 97110; 97116; 97161; 97530; C1776; C9290; J0690; J1650; J2250; J2274; J2405; J2704; J2765; J3010